=== PATIENT | female | born 1990 | race Caucasian/White ===

== ENCOUNTER 2023-06-22 11:45 | Emergency (ER) | payer MEDICAID, SELFPAY ==
[2023-06-22 11:48] VITALS: BP 164/122; PULSE 103; RESP 24; TEMP 36.8; O2SAT 100
--- NOTE | 2023-06-22 12:00 | DI.CT_ITS ---
Exam(s) CT THORAX ABD/PEL CTA EXAM: CT THORAX ABD/PEL CTA CLINICAL HISTORY: Thoracic pain. TECHNIQUE: Imaging Protocol: Axial CT angiography was performed with multi-slice acquisition and m ulti-planar and/or 3D reconstructions. CONTRAST MATERIAL: Intravenous: Omnipaque 350 contrast volume:100 mL Oral: No COMPARISON: CT CT CHEST WO CONTRAST from 09/07/2021 FINDINGS: CHEST: Tracheobronchial tree: Patent where visualized. Pulmonary parenchyma: No consolidation or dominant measurable mass. No architectural distortion. Pulmonary Arteries: Segmental and subsegmental pulmonary arteries are inadequately opacified due to b olus timing. No large central pulmonary embolus is seen. Mediastinum and Rosio: No dominant adenopathy or fluid collection. The esophagus is unremarkable. Visualized thyroid: Unremarkable. Pleura: No effusion or pneumothorax. Heart: The heart is not dilated. No coronary artery calcifications are seen. No pericardial effusion. Aorta: Thoracic aorta non-dilated. No evidence of dissection. Soft Tissues: Unremarkable. Bones: Within normal limits for the patient's age. ABDOMEN AND PELVIS: Abdomen: Celiac axis/mesenteric arteries: No evidence of occlusion or significant stenosis. Renal Arteries: No evidence of occlusion or significant stenosis. There is a single renal artery per fusing each kidney. Aorta: No evidence of occlusion or significant stenosis. No aneurysm or dissection. Pelvis: Iliac Arteries: No evidence of occlusion or significant stenosis. Common Femoral Arteries: No evidence of occlusion or significant stenosis. ABDOMEN: Liver: Normal density. No measurable mass. Gallbladder and Biliary Tract: Status post cholecystectomy. No significant biliary ductal dilatation . Pancreas: Normal density, no abnormal calcifications or inflammatory process. Spleen: Normal. Adrenals: No masses seen. Kidneys: Normal size, contour and axis. No radiodense stones or obstructive uropathy. There is an 8 m m cyst in the superior pole of the left kidney. No follow-up is recommended. Bowel: No obstruction or bowel wall thickening. No evidence of appendicitis. Anastomotic clips are s een in the rectum. Peritoneal Cavity: No ascites, collection or mesenteric inflammatory response. No free air. Lymph Nodes: Within normal limits. Bones: Within normal limits for the patient's age. Soft Tissues: Unremarkable. PELVIS: Bladder: Symmetric distention, no gross wall thickening. Reproductive Organs: There is a 2 cm right ovarian cyst present. Lymph Nodes: Within normal limits. Bones: Within normal limits for the patient's age. IMPRESSION: 1. Normal CT Angiogram of the chest, abdomen and pelvis. 2. No acute chest, abdomen or pelvic process. RADIATION DOSE DELIVERED: 1,022.85mGy.cm Total DLP DATA REPOSITORY: All CT scans at this facility are submitted to the National Radiology Data Registry (NRDR) Dose Index Registry (DIR) with the [employer] (ACR). RADIATION OPTIMIZATION: All CT scans at this facility use at least one of these dose optimization te chniques: automated exposure control; mA and/or kV adjustment per patient size (includes targeted exa ms where dose is matched to clinical indication); or iterative reconstruction.
[2023-06-22 12:16] LABS: Abs Immature Grans 0.01 10^3/uL (0.0-0.06); Absolute Basophil Count 0.04 10^3/uL (0.0-0.2); Absolute Lymphocyte Count 1.86 10^3/uL (1.2-3.4); Absolute Monocyte Count 0.49 10^3/uL (0.1-0.8); Absolute Neutrophil Count 2.32 10^3/uL (1.2-6.7); Basophils % 0.8; Eosinophils % 2.1; HCT 43.7 % (36.0-46.0); HGB 15.4 g/dL (11.2-15.7); Immature Grans % 0.2; Lymphocytes % 38.6; MCH 31.7 pg (27.0-33.0); MCHC 35.2 % (32.0-36.0); MCV 90 fL (80-95); MPV 9.1 fL (8.0-11.0); Monocytes % 10.2; Neutrophils % 48.1; Platelet Count 266 10^3/uL (130-400); RBC 4.86 10^6/uL (3.93-5.22); RDW 11.6 % (11.7-14.6); RDW-SD 38.2 fL; WBC 4.82 10^3/uL (4.4-10.8)
[2023-06-22] MEDS: HYDROmorphone 2 MG/ML SYR 1 MG IVP (12:20)
[2023-06-22] MEDS: Ondansetron 4 MG/2 ML VIAL IVP (12:21)
[2023-06-22] MEDS: Normal Saline 50 ML 200 ML (12:21)
[2023-06-22 12:30] LABS: ALT 23 U/L (14-59); AST 18 U/L (15-37); Albumin 4.3 g/dL (3.4-5.0); Alkaline Phosphatase 67 U/L (46-116); Anion Gap 7.7 mmol/L (3-11); BUN 11 mg/dL (7-18); Bilirubin, Total 0.7 mg/dL (0.2-1.0); CO2 24.3 mmol/L (21.0-32.0); CREATININE 0.7 mg/dL (0.55-1.02); Calcium 9.3 mg/dL (8.5-10.1); Chloride 102 mmol/L (98-107); Estimated GFR 119.24 (mL/min/1.73m2); Glucose 103 mg/dL (74-106); Sodium 134 mmol/L (136-145); Total Protein 7.8 g/dL (6.4-8.2)
[2023-06-22 12:34] LABS: Troponin I < 50 ng/L (<or=60)
[2023-06-22] MEDS: Normal Saline Flush 10 ML SYR IVP (12:51)
[2023-06-22] MEDS: Normal Saline - Diluent 50 ML VIAL IJ (12:51)
[2023-06-22] MEDS: Omnipaque 350 MG/ML 100 ML BTL IJ (12:53)
[2023-06-22] MEDS: Lidocaine 5% Patch 2 PATCH TP (13:36)
[2023-06-22] MEDS: Methocarbamol 500 MG TAB PO (13:37)
[2023-06-22 13:39] VITALS: BP 115/79; PULSE 78; RESP 18; O2SAT 98
--- NOTE | 2023-06-22 13:59 | DI.VRAD_ITS ---
PROCEDURE INFORMATION: Exam: CTA Chest With Contrast CTA Abdomen and Pelvis With Contrast Exam date and time: 06/22/2023 12:52 PM Age: 32 years old Clinical indication: Other: Thoracic pain TECHNIQUE: Imaging protocol: Computed tomographic angiography of the chest with contrast. Exam focused on the arteries. Computed tomographic angiography of the abdomen and pelvis with contrast. Exam focused on the arteries. 3D rendering (Not supervised by radiologist): MIP and/or 3D reconstructed images were created by the technologist. Radiation optimization: All CT scans at this facility use at least one of these dose optimization techniques: automated exposure control; mA and/or kV adjustment per patient size (includes targeted exams where dose is matched to clinical indication); or iterative reconstruction. Contrast material: OMNIPAQUE 350; Contrast volume: 100 ml; Contrast route: INTRAVENOUS (IV); COMPARISON: CT CHEST WO CONTRAST 09/07/2021 1:40 PM FINDINGS: VASCULATURE: Pulmonary arteries: Normal. No pulmonary emboli. Aorta: No aortic aneurysm. No aortic dissection. Celiac trunk and mesenteric arteries: No occlusion or significant stenosis. Renal arteries: No occlusion or significant stenosis. Right iliac arteries: No occlusion or significant stenosis. Left iliac arteries: No occlusion or significant stenosis. CHEST: Lungs: Unremarkable. No consolidation. No masses. Pleural spaces: Unremarkable. No pneumothorax. No pleural effusion. Heart: Unremarkable. No cardiomegaly. No pericardial effusion. ABDOMEN AND PELVIS: Liver: No mass. Gallbladder and bile ducts: Cholecystectomy. No ductal dilation. Pancreas: Unremarkable. No mass. No ductal dilation. Spleen: Unremarkable. No splenomegaly. Adrenal glands: Unremarkable. No mass. Kidneys and ureters: Unremarkable. No solid mass. No hydronephrosis. Stomach and bowel: Anastomosis in the rectum. No obstruction. No mucosal thickening. Appendix: No evidence of appendicitis. A normal appendix is identified. Intraperitoneal space: Unremarkable. No free air. No significant fluid collection. Urinary bladder: Unremarkable. No mass. Reproductive: Unremarkable as visualized. Lymph nodes: Unremarkable. No enlarged lymph nodes. Bones/joints: Unremarkable. No acute fracture. Soft tissues: Unremarkable. IMPRESSION: Unremarkable CTA chest, abdomen, and pelvis. Dictated and Authenticated by: Princess Miller MD. Ordering:BROOK Saravia MD
[2023-06-22] MEDS: ACETAMINOPHEN 1,000 MG/100 ML BTL 400 MG IVPB (15:04)
[2023-06-22] MEDS: Ketorolac 15 MG/ML VIAL IVP (15:05)
--- NOTE | 2023-06-22 15:23 | ED.GENADUL_ITS ---
Discharge Plan Disposition Patient Disposition: Home Discharge Details Clinical Impression: Strain of thoracic back region Primary Care Provider: REGIS THAO ED Provider: Manjit Ibarra Home Meds and New Rx's Prescriptions: New methocarbamol 500 mg tablet 500 mg PO TID PRN (Reason: muscle spasm) Qty: 20 0RF Continued albuterol sulfate 2.5 mg /3 mL (0.083 %) solution for nebulization 2.5 mg inhalation Q4H PRN albuterol sulfate [ProAir HFA] 90 mcg/actuation HFA aerosol inhaler 2 puff inhalation Q4H ibuprofen 800 mg tablet 800 mg PO Q8H PRN acetaminophen [Tylenol Extra Strength] 500 mg tablet 500 mg PO Q6H PRN ondansetron 4 mg tablet,disintegrating 4 mg PO Q6H PRN dextroamphetamine-amphetamine [Adderall] 5 mg tablet 20 mg PO DAILY dextroamphetamine-amphetamine [Adderall XR] 30 mg capsule,extended release 24hr 30 mg PO QAM tamsulosin 0.4 mg Capsule 0.4 mg PO DAILY Discharge Instructions Instructions: Thoracic Pain (ED) Additional Instructions: It is recommended that you take 600 mg of ibuprofen along with 650 mg of acetaminophen every 6 hours as needed for pain. Please continue to take the muscle relaxer as needed and perform light activities as tolerated. If you have any new or significant worsening of symptoms feel free to return the emergency department for reassessment otherwise follow-up with your primary care provider if not improving in the next week. Stand Alone Forms: Work Release Referrals: REGIS THAO [Primary Care Provider] - (If not improving in the next week) Discharge Data Discharge Date/Time-TO BE ENTERED AT DEPARTURE: 06/22/23 15:55 Medical Decision Making Patient presenting to the emergency department for chief complaint of severe thoracic back pain. Patient reports yesterday she was carrying some heavy buckets at work and felt a pulling and tightening in her mid back. She continue to work sometimes bent over which only causes pain to worsen. She did attempt to use some [id number] pain medication but today pain was severe causing her to come to the emergency department. Patient has past medical history of Leland-Danlos, asthma, sciatica, PTSD. Physical exam shows extremely uncomfortable appearing female patient with severe pain on any movement, patient is ambulatory and moving all extremities. She does have some palpable tenderness and spasms to the paraspinal tissue of the thoracic spine and subscapular region. Exam is otherwise noncontributory. Highly suspect thoracic muscular strain but given patient's history of Leland-Danlos syndrome and severe thoracic back pain I do feel that CTA imaging is needed to rule out any sort of dissection. Pending results we will treat patient's pain. Labs performed and are unremarkable and noncontributory, CTA imaging is unremarkable for any acute findings. Reassessed patient after narcotic pain medication she still states pretty significant amount of pain. Lidocaine patches were applied and patient given IV acetaminophen and ketorolac, along with Robaxin. After further period of observation patient did have some improvement of discomfort. Will discharge patient with recommendation to continue cqjr-[id number] medications and will prescribe further Robaxin to help with muscular spasms. After discussion of diagnosis and plan of care patient has no further needs, questions, or concerns and states clear understanding to return to the emergency department for any worsening symptoms. This documentation was generated using [employer] dictation system, please disregard any oddities of phrase or misspellings. Imaging Data Radiologic Study: Imaging: CT Scan Radiologist's impression: Exam(s) PROCEDURE INFORMATION: Exam: CTA Chest With Contrast CTA Abdomen and Pelvis With Contrast Exam date and time: 06/22/2023 12:52 PM Age: 32 years old Clinical indication: Other: Thoracic pain TECHNIQUE: Imaging protocol: Computed tomographic angiography of the chest with contrast. Exam focused on the arteries. Computed tomographic angiography of the abdomen and pelvis with contrast. Exam focused on the arteries. 3D rendering (Not supervised by radiologist): MIP and/or 3D reconstructed images were created by the technologist. Radiation optimization: All CT scans at this facility use at least one of these dose optimization techniques: automated exposure control; mA and/or kV adjustment per patient size (includes targeted exams where dose is matched to clinical indication); or iterative reconstruction. Contrast material: OMNIPAQUE 350; Contrast volume: 100 ml; Contrast route: INTRAVENOUS (IV); COMPARISON: CT CHEST WO CONTRAST 09/07/2021 1:40 PM FINDINGS: VASCULATURE: Pulmonary arteries: Normal. No pulmonary emboli. Aorta: No aortic aneurysm. No aortic dissection. Celiac trunk and mesenteric arteries: No occlusion or significant stenosis. Renal arteries: No occlusion or significant stenosis. Right iliac arteries: No occlusion or significant stenosis. Left iliac arteries: No occlusion or significant stenosis. CHEST: Lungs: Unremarkable. No consolidation. No masses. Pleural spaces: Unremarkable. No pneumothorax. No pleural effusion. Heart: Unremarkable. No cardiomegaly. No pericardial effusion. ABDOMEN AND PELVIS: Liver: No mass. Gallbladder and bile ducts: Cholecystectomy. No ductal dilation. Pancreas: Unremarkable. No mass. No ductal dilation. Spleen: Unremarkable. No splenomegaly. Adrenal glands: Unremarkable. No mass. Kidneys and ureters: Unremarkable. No solid mass. No hydronephrosis. Stomach and bowel: Anastomosis in the rectum. No obstruction. No mucosal thickening. Appendix: No evidence of appendicitis. A normal appendix is identified. Intraperitoneal space: Unremarkable. No free air. No significant fluid collection. Urinary bladder: Unremarkable. No mass. Reproductive: Unremarkable as visualized. Lymph nodes: Unremarkable. No enlarged lymph nodes. Bones/joints: Unremarkable. No acute fracture. Soft tissues: Unremarkable. IMPRESSION: Unremarkable CTA chest, abdomen, and pelvis. Lab Data Lab results reviewed: Yes I reviewed the patient's lab results. HPI General Mode of arrival: ambulatory . Date/Time Provider Initiated Documentation: 06/22/23 11:53 . Limitations to Documentation: no limitations . Information obtained by: patient and RN notes reviewed . History of Present Illness 32 year old F presents to the emergency department with the chief complaint of Severe thoracic back pain, described as severe, with intensity rated at >10. Quality is described as sharp, and is localized to the back. Patient extremity. Patient started experiencing this day(s) (1) and it has been constant. No relieving factors improve symptom(s), Movement worsens symptoms . Patient notes no other symptoms.. Patient did receive the follo wing treatments prior to arrival, other (Acetaminophen) Related Data Home Medications Medication Instructions Recorded Confirmed acetaminophen 500 mg tablet 500 mg PO Q6H PRN 11/03/21 06/22/23 (Tylenol Extra Strength) albuterol sulfate 2.5 mg/3 mL 2.5 mg inhalation Q4H PRN 11/03/21 06/22/23 (0.083 %) solution for nebulization albuterol sulfate 90 mcg/actuation 2 puff inhalation Q4H 11/03/21 06/22/23 aerosol inhaler (ProAir HFA) dextroamphetamine-amphetamine 5 mg 20 mg PO DAILY 11/03/21 06/22/23 tablet (Adderall) dextroamphetamine-amphetamine ER 30 mg PO QAM 11/03/21 06/22/23 30 mg 24hr capsule,extend release (Adderall XR) ibuprofen 800 mg tablet 800 mg PO Q8H PRN 11/03/21 06/22/23 ondansetron 4 mg disintegrating 4 mg PO Q6H PRN 11/03/21 06/22/23 tablet methocarbamol 500 mg tablet 500 mg PO TID PRN muscle spasm #20 06/22/23 tabs tamsulosin 0.4 mg capsule 0.4 mg PO DAILY 06/22/23 06/22/23 Previous Rx's Medication Instructions Recorded methocarbamol 500 mg tablet 500 mg PO TID PRN muscle spasm #20 06/22/23 tabs Allergies Allergy/AdvReac Type Severity Reaction Status Date / Time Penicillins Allergy Hives Unverified 06/22/23 11:52 tramadol AdvReac vomiting Unverified 06/22/23 11:52 General Stated Complaint: Orthopedic KIERSTEN: 4 Review of Systems Constitutional Constitutional: Denies chills, Denies fever(s) and Denies headache(s) ENT Ears, Nose, Mouth, and Throat: Denies headache(s) Cardiovascular Cardiovascular: Denies chest pain and Denies dyspnea Respiratory Respiratory: Denies dyspnea Gastrointestinal Gastrointestinal: Denies abdominal pain, Denies diarrhea, Denies nausea and Denies vomiting Genitourinary Genitourinary: Denies urinary incontinence Musculoskeletal Musculoskeletal: Reports as per HPI, Reports back pain, Reports muscle cramps, Denies muscle weakness, Denies numbness and Reports tingling Integumentary/Breasts Skin/Breast: Denies rash Neurologic Neurologic: Denies headache(s), Denies numbness and Reports tingling PFSH All Active Problems (Updated 06/22/23 @ 15:39 by Manjit Ibarra NP) Strain of thoracic back region (Acute) Medical History Acne Asthma Attention deficit hyperactivity disorder Bilateral knee pain onset 12/18/19 Depressive disorder Leland-Danlos syndrome Fibromyalgia Gastritis onset 06/05/2019 Influenza Left sided sciatica Nicotine dependence Posterior vaginal wall prolapse Posttraumatic stress disorder Surgical History H/O colonoscopy 01/26/2021 H/O resection of rectum VILLARREAL stapled trans anal rectal resection 2013 History of biopsy muscle biopsy 09/16/2013 Hx of cholecystectomy 2013 Family History Mother Chronic depression Diabetes Uterine cancer Hypertension Brother Depression Father Diabetes Maternal Grandmother Diabetes Maternal Grandfather Diabetes Social History Smoking/Tobacco Use Status: Current every day Smoking risk assessment performed?: Yes (spokes /2-/ ppd) Alcohol Intake: current Alcohol Intake frequency: other Details: rarely drinks alcohol Drug use: Daily Substance use type: marijuana Household members: significant other Pets and animals: Yes (dog and cat) Exam Const General: cooperative, healthy appearing and not diaphoretic Nutritional Appearance: average body habitus Orientation: alert, awake and oriented x3 Limitations: mental status not altered Neck Neck: normal visual inspection, full ROM, trachea midline, supple and no anterior neck swelling Resp Effort & Inspection: normal respiratory effort and able to speak in complete sentences Auscultation: clear to auscultation bilaterally Cardio Jugular venous pressure: no JVD Palpation: normal PMI Rate: regular rate Rhythm: regular rhythm Heart Sounds: S1 normal, S2 normal, no click, no gallops, no murmurs and no rubs Pulses: radial pulses present bilaterally 2+ Back/Spine/Pelvis Cervical Spine: normal cervical lordosis and No cervical spinal tenderness Thoracic/Lumbar Spine: paraspinal tenderness (Mid thoracic spine and subscapular) and No thoracic spinal tenderness Skin General skin exam: no rashes or lesions noted Neuro General: patient alert, patient awake, patient oriented x3, tone normal and moves all extremities Course Vital Signs Vital signs: Vital Signs Temperature 36.8 C 06/22/23 11:48 Pulse 103 H 06/22/23 11:48 Respiratory Rate 24 06/22/23 11:48 Blood Pressure 164/122 H 06/22/23 11:48 Pulse Oximetry 100 06/22/23 11:48 Temperature 36.8 C 06/22/23 11:48 Temperature Source Skin 06/22/23 11:48 Pulse 78 06/22/23 13:39 Respiratory Rate 18 06/22/23 13:39 Blood Pressure 115/79 06/22/23 13:39 Blood Pressure Position Sitting 06/22/23 11:48 Pulse Oximetry 98 06/22/23 13:39 Oxygen Delivery Method Room Air 06/22/23 13:39 Oxygen Flow Rate 0 06/22/23 13:39 Pain Level 10 06/22/23 12:20 Lab/Test Results Lab/Test Results: Laboratory Tests Range/Units 06/22/23 06/22/23 06/22/23 12:10 12:10 12:10 WBC (4.4-10.8) 10^3/uL 4.82 RBC (3.93-5.22) 10^6/uL 4.86 Hgb (11.2-15.7) g/dL 15.4 Hct (36.0-46.0) % 43.7 MCV (80-95) fL 90 MCH (27.0-33.0) pg 31.7 MCHC (32.0-36.0) % 35.2 RDW (11.7-14.6) % 11.6 L Plt Count (130-400) 10^3/uL 266 MPV (8.0-11.0) fL 9.1 Immature Gran % 0.2 Neutrophils % 48.1 Lymphocytes % 38.6 Monocytes % 10.2 Eosinophils % 2.1 Basophils % 0.8 Nucleated RBC % (0.0-0.3) % 0.0 Absolute Neutrophils (1.2-6.7) 10^3/uL 2.32 Absolute Lymphocytes (1.2-3.4) 10^3/uL 1.86 Absolute Monocytes (0.1-0.8) 10^3/uL 0.49 Absolute Eosinophils (0.0-0.7) 10^3/uL 0.10 Absolute Basophils (0.0-0.2) 10^3/uL 0.04 Sodium (136-145) mmol/L 134 L Potassium (3.5-5.1) mmol/L 4.0 Chloride (98-107) mmol/L 102 Carbon Dioxide (21.0-32.0) mmol/L 24.3 Anion Gap (3-11) mmol/L 7.7 BUN (7-18) mg/dL 11 Creatinine (0.55-1.02) mg/dL 0.7 Est GFR (CKD-EPI 2020) (mL/min/1.73m2) 119.24 Glucose (74-106) mg/dL 103 Calcium (8.5-10.1) mg/dL 9.3 Total Bilirubin (0.2-1.0) mg/dL 0.7 AST (15-37) U/L 18 ALT (14-59) U/L 23 Alkaline Phosphatase (46-116) U/L 67 Troponin I (<or=60) ng/L < 50 Total Protein (6.4-8.2) g/dL 7.8 Albumin (3.4-5.0) g/dL 4.3 POC- Test(urine) Negative
== END 2023-06-22 15:55 | disposition home or self-care (01) ==
PROVIDERS: Emergency Provider Nurse Practitioner Family; PCP Family Medicine
DX: M54.6 Pain in thoracic spine (principal); S29.012A Strain of muscle and tendon of back wall of thorax, initial encounter
CPT/HCPCS: 71275; 80053; 81025; 96374; 96375; 99285; 74174; 84484; 85025; 99284; J0131; J1170; J1885; J2405; J3490

== ENCOUNTER 2024-03-12 11:35 | Emergency (ER) | payer MEDICAID, SELFPAY ==
[2024-03-12 11:44] VITALS: BP 142/98; PULSE 87; RESP 20; TEMP 37.1; O2SAT 100
[2024-03-12 12:05] LABS: Bilirubin Negative (Negative); Blood Trace-intact (Negative); Clarity Sl Cloudy (Clear); Glucose Negative (Negative); Ketones Negative (Negative); Leukocyte Esterase Negative (Negative); Nitrite Positive (Negative); Urobilinogen 0.2 mg/dL (Up to 0.2)
[2024-03-12 12:09] LABS: Bacteria Many HPF (Negative); C & S Indicated? No; Casts Negative LPF (Negative); Crystals Negative HPF (Negative); Epithelial Cells Rare HPF (Negative); Mucus Trace (Negative); WBC 0-2 HPF (0-5)
[2024-03-12 13:01] LABS: COVID-19 PCR Negative (Negative); Influenza A PCR Negative (Negative); Influenza B PCR Negative (Negative); RSV PCR Negative (Negative)
[2024-03-12 13:03] LABS: Source Nasopharynx
--- NOTE | 2024-03-12 16:46 | W.ED.FU ---
Date of service: 03/12/24 Time of Service: 16:47 Follow Up Plan: Patient left from the emergency department prior to being evaluated by a provider. Testing was performed by nursing in triage including urinalysis. Urinalysis is concerning for potential urinary tract infection. I contacted the patient and alerted her to the findings and recommended she return to the emergency ferment immediately for further evaluation and treatment. Patient verbalized understanding of my concerns and recommendation.
== END 2024-03-12 13:19 | disposition left against medical advice (07) ==
PROVIDERS: Student in an Organized Health Care Education/Training Program; Emergency Provider Physician Assistant; PCP Family Medicine
DX: M54.50 Low back pain, unspecified; Z53.29 Procedure and treatment not carried out because of patient's decision for other reasons
CPT/HCPCS: 87637; 81003; 81015

== ENCOUNTER 2024-03-13 17:46 | Emergency (ER) | payer MEDICAID, SELFPAY ==
[2024-03-13 17:48] VITALS: BP 151/105; PULSE 104; RESP 18; TEMP 36.2; O2SAT 98
--- NOTE | 2024-03-13 18:00 | DI.RAD_ITS ---
Exam(s) XR CHEST 2V PA LATERAL EXAM: XR CHEST 2V PA LATERAL CLINICAL HISTORY: cough TECHNIQUE: 2D digital imaging was performed of the chest. Two images were obtained. PA and lateral views were obtained. COMPARISON: CR XR CHEST 1 VW from 08/07/2021 FINDINGS: MEDIASTINUM: Normal. HEART: Normal. PULMONARY VASCULATURE: Normal. LUNGS: No focal consolidating infiltrates. The lungs are hyperinflated which can be seen with reacti ve airways disease. PLEURAL SPACE: No pleural effusion or pneumothorax. BONE:Within normal limits for the patient's age. OTHER FINDINGS:Normal. IMPRESSION: No focal consolidating infiltrates. DATA REPOSITORY: RADIATION DOSE DELIVERED:
--- NOTE | 2024-03-13 18:00 | DI.CT_ITS ---
Exam(s) CT RENAL COLIC WO EXAM: CT RENAL COLIC WO CLINICAL HISTORY: bilateral flank pain. TECHNIQUE: Imaging Protocol: Axial computed tomography images with coronal and sagittal reformatted images were created and reviewed. COMPARISON: CT CT THORAX ABD/PEL CTA from 06/22/2023 FINDINGS: ABDOMEN: Lung Bases: Normal where visualized. Liver: Normal density. No measurable mass. Gallbladder and biliary tract: Status post cholecystectomy. No significant biliary ductal dilatation . Pancreas: Normal density, no abnormal calcifications or inflammatory process. Spleen: Normal. Kidneys: The kidneys appear mildly enlarged and hypodense bilaterally. There does appear to be mild perinephric stranding present.No radiodense stones or obstructive uropathy. No masses seen. Adrenal glands: No mass is seen. Lymph nodes: Within normal limits. Abdominal Aorta: Abdominal portion non-dilated. PELVIS: Bladder:Symmetric distention, no gross wall thickening. Bowel: No obstruction or bowel wall thickening. Anastomosis is seen at the rectosigmoid junction. No evidence of an appendicitis. Peritoneal cavity: No ascites, collection or mesenteric inflammatory response. No free air. Reproductive organs: Unremarkable as visualized. Bones: Within normal limits. Soft Tissues: Within normal limits. IMPRESSION: 1. Mildly enlarged kidneys with mild perinephric stranding raising the question of infection such as pyelonephritis. Please correlate clinically. 2. No evidence of nephrolithiasis or hydronephrosis. RADIATION DOSE DELIVERED: 618.16mGy.cm Total DLP DATA REPOSITORY: All CT scans at this facility are submitted to the National Radiology Data Registry (NRDR) Dose Index Registry (DIR) with the [employer] (ACR). RADIATION OPTIMIZATION: All CT scans at this facility use at least one of these dose optimization te chniques: automated exposure control; mA and/or kV adjustment per patient size (includes targeted exa ms where dose is matched to clinical indication); or iterative reconstruction.
--- NOTE | 2024-03-13 18:09 | W.ED.GENAD ---
Discharge Plan Disposition Patient Disposition: Home Condition: Stable Discharge Details Clinical Impression: Flank pain Primary Care Provider: REGIS THAO ED Provider: Shahriar Hernandez Home Meds and New Rx's Prescriptions: New ciprofloxacin HCl 500 mg tablet 500 mg PO BID Qty: 14 0RF doxycycline hyclate 100 mg tablet 100 mg PO BID Qty: 14 0RF Continued albuterol sulfate 2.5 mg /3 mL (0.083 %) solution for nebulization 2.5 mg inhalation Q4H PRN albuterol sulfate [ProAir HFA] 90 mcg/actuation HFA aerosol inhaler 2 puff inhalation Q4H ibuprofen 800 mg tablet 800 mg PO Q8H PRN acetaminophen [Tylenol Extra Strength] 500 mg tablet 500 mg PO Q6H PRN ondansetron 4 mg tablet,disintegrating 4 mg PO Q6H PRN dextroamphetamine-amphetamine [Adderall] 5 mg tablet 20 mg PO DAILY dextroamphetamine-amphetamine [Adderall XR] 30 mg capsule,extended release 24hr 30 mg PO QAM tamsulosin 0.4 mg Capsule 0.4 mg PO DAILY methocarbamol 500 mg tablet 500 mg PO TID PRN (Reason: muscle spasm) Qty: 20 0RF Discharge Instructions Additional Instructions: Your blood work and imaging did not show any significant concerning findings other than you likely have a kidney infection Take the antibiotics as prescribed Follow-up with your primary care provider especially if not improving this week If you feel more ill or have new symptoms such as persistent vomiting or severe difficulty breathing return to the emergency department for reevaluation Stand Alone Forms: Work Release HPI General Mode of arrival: ambulatory. Date/Time Provider Initiated Documentation: 03/13/24 17:49. Limitations to Documentation: no limitations. Information obtained by: patient. History of Present Illness 33 year old F presents to the emergency department with the chief complaint of Fever, cough, sinus pressure, urinary incontinence, described as moderate, Patient started experiencing this week(s) (1) and it has been constant. No relieving factors improve symptom(s), No exacerbating factors reported . Patient notes denies chest pain and shortness of breath. Patient did receive the following treatments prior to arrival, none Related Data Home Medications Medication Instructions Recorded Confirmed acetaminophen 500 mg tablet 500 mg PO Q6H PRN 11/03/21 06/22/23 (Tylenol Extra Strength) albuterol sulfate 2.5 mg/3 mL 2.5 mg inhalation Q4H PRN 11/03/21 06/22/23 (0.083 %) solution for nebulization albuterol sulfate 90 mcg/actuation 2 puff inhalation Q4H 11/03/21 06/22/23 aerosol inhaler (ProAir HFA) dextroamphetamine-amphetamine 5 mg 20 mg PO DAILY 11/03/21 06/22/23 tablet (Adderall) dextroamphetamine-amphetamine ER 30 mg PO QAM 11/03/21 06/22/23 30 mg 24hr capsule,extend release (Adderall XR) ibuprofen 800 mg tablet 800 mg PO Q8H PRN 11/03/21 06/22/23 ondansetron 4 mg disintegrating 4 mg PO Q6H PRN 11/03/21 06/22/23 tablet methocarbamol 500 mg tablet 500 mg PO TID PRN muscle spasm #20 06/22/23 tabs tamsulosin 0.4 mg capsule 0.4 mg PO DAILY 06/22/23 06/22/23 ciprofloxacin HCl 500 mg tablet 500 mg PO BID #14 tabs 03/13/24 doxycycline hyclate 100 mg tablet 100 mg PO BID #14 tabs 03/13/24 Previous Rx's Medication Instructions Recorded methocarbamol 500 mg tablet 500 mg PO TID PRN muscle spasm #20 06/22/23 tabs ciprofloxacin HCl 500 mg tablet 500 mg PO BID #14 tabs 03/13/24 doxycycline hyclate 100 mg tablet 100 mg PO BID #14 tabs 03/13/24 Allergies Allergy/AdvReac Type Severity Reaction Status Date / Time latex Allergy Intermediate Swelling/Ed Verified 03/13/24 17:53 félix Penicillins Allergy Hives Unverified 03/13/24 17:53 tramadol AdvReac vomiting Unverified 03/13/24 17:53 General Stated Complaint: Urinary KIERSTEN: 3 Review of Systems All systems reviewed & are unremarkable except as noted in HPI and below Constitutional Constitutional: Denies weakness Cardiovascular Cardiovascular: Denies chest pain and Denies dyspnea Respiratory Respiratory: Denies dyspnea Gastrointestinal Gastrointestinal: Denies abdominal pain, Denies nausea and Denies vomiting Genitourinary Genitourinary: Reports difficulty voiding Integumentary/Breasts Skin/Breast: Denies rash Neurologic Neurologic: Denies weakness Exam Const General: no acute distress Orientation: alert [facility] [place] Head: normal to inspection Ears: external ears normal General nose exam: external nose normal Mouth: moist mucous membranes Eyes General: appearance normal, both eyes and all related structures Neck Neck: normal visual inspection Resp Effort & Inspection: normal respiratory effort and able to speak in complete sentences Auscultation: clear to auscultation bilaterally Cardio Jugular venous pressure: no JVD Rate: regular rate Heart Sounds: no murmurs GI Palpation: soft and nontender General: CVA tenderness Skin General skin exam: no rashes or lesions noted Neuro General: patient alert and patient oriented x3 Extrem General: normal to inspection Psych Mental Status: mental status grossly normal Course Vital Signs Vital signs: Vital Signs Temperature 36.2 C L 03/13/24 17:48 Pulse 104 H 03/13/24 17:48 Respiratory Rate 18 03/13/24 17:48 Blood Pressure 151/105 H 03/13/24 17:48 Pulse Oximetry 98 03/13/24 17:48 Temperature 36.2 C L 03/13/24 17:48 Temperature Source Temporal Artery Scan 03/13/24 17:48 Pulse 104 H 03/13/24 17:48 Respiratory Rate 18 03/13/24 17:48 Respiratory Effort Normal, Non-Labored 03/13/24 17:52 Blood Pressure 151/105 H 03/13/24 17:48 Blood Pressure Position Sitting 03/13/24 17:48 Pulse Oximetry 98 03/13/24 17:48 Pain Level 8 03/13/24 17:48 Lab/Test Results Lab/Test Results: 03/13/24 17:56 Urine - Clean Catch Urine Culture - Pending Medical Decision Making 33-year-old female who says she has had chronic issues with incomplete emptying of her bladder, who comes in with 1 week of sinus pressure, sore throat, bilateral ear pain, and also burning when she urinates and urinary incontinence. She states this morning she had a temperature of 103. She came to the ER yesterday but then left before being seen but had a UA collected that was positive for nitrates. She does note bilateral CVA area pain as well. She is alert and oriented x 4 on arrival does appear mildly anxious. Her posterior pharynx appears normal without erythema and has a midline uvula, has no submandibular swelling, no pain over the hyoid restricted neck movements. Both tympanic membranes are normal in appearance as are the external auditory canals. She has no meningismus, clear lung sounds, no murmur, no leg swelling or calf tenderness, her abdomen is soft and nontender. She does have bilateral CVA tenderness. Unclear etiology for all of her symptoms, could have a URI and also a urinary tract infection. Will check a CBC, CMP given her fever earlier also check a procalcitonin. She says she has been negative for COVID and flu and declines testing for this. Will check a urine culture and obtain a chest x-ray and also CT renal colic to evaluate for possible kidney stone. Blood work unremarkable, x-ray shows no pneumonia does have evidence of chronic airway disease. CT shows no kidney stone but does have evidence of possible pyelonephritis which fits with her urine from yesterday. Ciprofloxacin ordered, will also put her on Doxy for possible sinusitis and URI for a week. She is stable for discharge, advised to follow-up with her PCP and return precautions given Differential Diagnosis Differential Diagnosis: Sinusitis, URI, interstitial cystitis, UTI, pyelonephritis Imaging Data Radiologic Study: Attestation: I personally reviewed and interpreted this imaging study as follows: Imaging: X-Ray Radiologist's impression: IMPRESSION: 1. Bilateral moderate hyperinflation. Consider underlying upper respiratory infection with air trapping or reactive airway disease. cannot exclude early emphysema/COPD. 2. No acute infiltrates or edema. 3. No acute pleural change. Radiologic Study #2: Attestation: I personally reviewed and interpreted this imaging study as follows: Imaging: CT Scan Radiologist's impression: IMPRESSION: 1. No obstructive uropathy or acute perirenal inflammatory type features. Limited evaluation without contrast. cannot exclude mild edema of the renal parenchyma with subtle low-attenuation. cannot exclude pyelonephritis. Please correlate clinically. 2. Previous cholecystectomy. 3. No acute uterine or adnexal pathology. 4. No acute bowel pathology. Previous partial sigmoid bowel resection. 5. A non inflamed appendix is identified. 6. No free fluid or free air Lab Data Lab results reviewed: Yes I reviewed the patient's lab results. Quality:SDOH Health Related Social Needs: No Data to Display PFSH All Active Problems (Updated 03/13/24 @ 19:56 by Shahriar Hernandez MD) Flank pain (Acute) Medical History Acne Asthma Attention deficit hyperactivity disorder Bilateral knee pain onset 12/18/19 Depressive disorder Leland-Danlos syndrome Fibromyalgia Gastritis onset 06/05/2019 Influenza Left sided sciatica Nicotine dependence Posterior vaginal wall prolapse Posttraumatic stress disorder Surgical History H/O colonoscopy 01/26/2021 H/O resection of rectum VILLARREAL stapled trans anal rectal resection 2013 History of biopsy muscle biopsy 09/16/2013 Hx of cholecystectomy 2013 Family History Mother Chronic depression Diabetes Uterine cancer Hypertension Brother Depression Father Diabetes Maternal Grandmother Diabetes Maternal Grandfather Diabetes Social History Smoking/Tobacco Use Status: Current every day Tobacco Type: cigarettes and e-cigarettes Smoking risk assessment performed?: Yes (spokes 1/2-3/4 ppd) Alcohol Intake: current Alcohol Intake frequency: a few times a week Details: rarely drinks alcohol Drug use: Daily Substance use type: marijuana Household members: significant other Pets and animals: Yes (dog and cat)
[2024-03-13] MEDS: Ketorolac 15 MG/ML VIAL IVP ×2 (18:24→19:55)
[2024-03-13] MEDS: Normal Saline 1,000 ML 1000 ML IV (18:25)
[2024-03-13 18:26] LABS: Abs Immature Grans 0.02 10^3/uL (0.0-0.06); Absolute Basophil Count 0.03 10^3/uL (0.0-0.2); Absolute Monocyte Count 0.57 10^3/uL (0.1-0.8); Absolute Neutrophil Count 5.56 10^3/uL (1.2-6.7); Basophils % 0.4 %; Eosinophils % 1.2 %; HCT 44.3 % (36.0-46.0); HGB 14.9 g/dL (11.2-15.7); Immature Grans % 0.2 %; Lymphocytes % 25.1 %; MCH 31.8 pg (27.0-33.0); MCHC 33.6 % (32.0-36.0); MCV 95 fL (80-95); MPV 9.2 fL (8.0-11.0); Monocytes % 6.8 %; Neutrophils % 66.3 %; Platelet Count 292 10^3/uL (130-400); RBC 4.69 10^6/uL (3.93-5.22); RDW-SD 41.7 fL; WBC 8.38 10^3/uL (4.4-10.8)
[2024-03-13] MEDS: Ondansetron 4 MG/2 ML VIAL (18:26)
[2024-03-13 18:43] LABS: ALT 31 U/L (14-59); AST 18 U/L (15-37); Albumin 3.9 g/dL (3.4-5.0); Alkaline Phosphatase 78 U/L (46-116); Anion Gap 6.5 mmol/L (3-11); BUN 12 mg/dL (7-18); Bilirubin, Total 0.21 mg/dL (0.2-1.0); CO2 31.5 mmol/L (21.0-32.0); CREATININE 0.7 mg/dL (0.55-1.02); Calcium 9.1 mg/dL (8.5-10.1); Chloride 104 mmol/L (98-107); Estimated GFR 118.51 (mL/min/1.73m2); Glucose 110 mg/dL (74-106); Magnesium 1.8 mg/dL (1.8-2.4); Potassium 3.7 mmol/L (3.5-5.1); Sodium 142 mmol/L (136-145); Total Protein 7.3 g/dL (6.4-8.2)
[2024-03-13] MEDS: CIPROFLOXACIN 400 MG/200 ML BAG 200 MG IVPB (18:47)
[2024-03-13 19:14] LABS: Procalcitonin < 0.1 ng/mL
--- NOTE | 2024-03-13 19:36 | DI.VRAD_ITS ---
PROCEDURE INFORMATION: Exam: XR Chest Exam date and time: 03/13/2024 7:03 PM Age: 33 years old Clinical indication: Cough TECHNIQUE: Imaging protocol: Radiologic exam of the chest. Views: 2 views. COMPARISON: CT THORAX ABD/PEL CTA 06/22/2023 12:52 PM FINDINGS: Lungs: Moderate hyperinflation bilaterally may represent early or developing emphysema or COPD. Differential diagnosis would include air trapping from an upper respiratory infection or reactive airway disease. No acute lung infiltrates or edema. Pleural spaces: No pleural effusion. Heart/Mediastinum: Normal heart size. Bones/joints: Thoracic spine degenerative features and mild lower thoracic levoscoliosis. IMPRESSION: 1. Bilateral moderate hyperinflation. Consider underlying upper respiratory infection with air trapping or reactive airway disease. cannot exclude early emphysema/COPD. 2. No acute infiltrates or edema. 3. No acute pleural change. Dictated and Authenticated by: David Natarajan MD. Ordering:HÉCTOR Bess MD
--- NOTE | 2024-03-13 19:47 | DI.VRAD_ITS ---
PROCEDURE INFORMATION: Exam: CT Abdomen And Pelvis Without Contrast Exam date and time: 03/13/2024 7:02 PM Age: 33 years old Clinical indication: Abdominal pain; Other: Bilateral flank pain TECHNIQUE: Imaging protocol: Computed tomography of the abdomen and pelvis without contrast. COMPARISON: CT THORAX ABD/PEL CTA 06/22/2023 12:52 PM FINDINGS: Lungs: Lung bases are clear. Pleural spaces: No pleural effusion. Heart: Normal heart size. No pericardial effusion. No coronary artery atherosclerotic calcium. Liver: The liver is normal in size, contour and attenuation. Gallbladder and biliary ducts: Patient has had a previous cholecystectomy. There is no biliary dilatation. There are no ductal stones visible. Patient has had a previous cholecystectomy. There is no biliary dilatation. There are no ductal stones visible. Pancreas: The pancreas is normal in contour and attenuation. Spleen: The spleen is normal in size, contour and attenuation. Adrenal glands: The adrenal glands are normal in size and contour bilaterally. Kidneys and ureters: No obstructive uropathy. No renal inflammatory features. Both kidneys with subtle low-attenuation of the renal parenchyma. cannot exclude edema. Recommend correlation with urinalysis. Possibility of early pyelonephritis cannot be excluded. No suspicious focal renal lesions. Pararenal fat is unremarkable. No inflammatory features or significant stranding. A focal hyperdense lesion in the posterior left renal parenchyma measuring 5 mm is most consistent with a rounded hyperdense cyst. Stomach and bowel: Gastric morphology is unremarkable. No edema. No gastric outlet obstruction.Small bowel loops are normal in course and caliber. There is no mucosal edema or bowel wall thickening. No obstructive features.The colon contains formed fecal material. There is no bowel wall thickening. No inflammatory features. No obstruction. There is an anastomotic staple line within the sigmoid colon. No acute features. Appendix: A non inflamed appendix is identified. Series 3: Images 700 through 665. Intraperitoneal space: No free fluid. No free air. Vasculature: Unremarkable. No abdominal aortic aneurysm. Lymph nodes: Unremarkable. No enlarged lymph nodes. Urinary bladder: Urinary bladder is unremarkable in appearance. No wall thickening. No intravesicular calculi. No intravesicular gas. Reproductive: The uterus and adnexa are unremarkable in appearance. There are no dominant adnexal cysts or masslike features. There are no inflammatory features. No uterine mass evident. Bones/joints: No acute skeletal change. Soft tissues: Unremarkable. IMPRESSION: 1. No obstructive uropathy or acute perirenal inflammatory type features. Limited evaluation without contrast. cannot exclude mild edema of the renal parenchyma with subtle low-attenuation. cannot exclude pyelonephritis. Please correlate clinically. 2. Previous cholecystectomy. 3. No acute uterine or adnexal pathology. 4. No acute bowel pathology. Previous partial sigmoid bowel resection. 5. A non inflamed appendix is identified. 6. No free fluid or free air. Dictated and Authenticated by: David Natarajan MD. Ordering:HÉCTOR Bess MD
[2024-03-13 19:54] VITALS: BP 151/105; PULSE 104; RESP 18; TEMP 36.2; O2SAT 98
[2024-03-13] MEDS: Doxycycline Hyclate 100 MG CAP PO (20:07)
[2024-03-13 20:08] VITALS: BP 130/81; PULSE 62; RESP 16; TEMP 36.8; O2SAT 99
--- NOTE | 2024-03-15 08:57 | W.ED.FU ---
Date of service: 03/15/24 Time of Service: 08:57 Follow Up Plan: This patient had a urinalysis return to my shift. She was growing a pansensitive E. coli greater than 100,000 colony-forming units for which she received treatment with ciprofloxacin. Will continue to proceed with an empiric trial of expectant outpatient management.
== END 2024-03-13 20:12 | disposition home or self-care (01) ==
PROVIDERS: Emergency Provider Emergency Medicine; PCP Family Medicine
DX: R10.31 Right lower quadrant pain (principal); R10.32 Left lower quadrant pain; R32 Unspecified urinary incontinence; R30.0 Dysuria; R07.0 Pain in throat; R09.81 Nasal congestion; H92.01 Otalgia, right ear; H92.02 Otalgia, left ear
CPT/HCPCS: 80053; 81025; 84145; 87077; 96365; 96375; 96376; 99284; 71046; 74176; 83735; 85025; 87086; 87186; 99283; J0744; J1885; J2405